=== PATIENT | male | born 1995 | race Caucasian/White ===

== ENCOUNTER 2016-09-24 13:22 | Emergency (ER) | payer BC ==
[2016-09-24 13:27] VITALS: TEMP 97.9; BMI 25.0
[2016-09-24] MEDS ORDERED: DIAZEPAM 10 MG/2 ML TUBEX IM ONE (13:34)
[2016-09-24] MEDS ORDERED: NS 1,000 ML IV ONE ×2 (13:35)
[2016-09-24] MEDS ORDERED: SODIUM CHLORIDE 0.9% 3 ML FLUSH FLUSH PRN (13:35)
--- NOTE | 2016-09-24 13:38 | EDPRACDOC ---
- General Information Chief Complaint: Abdominal Pain Stated Complaint: TINGLING ALL OVER Time Seen by Provider: 09/24/16 13:34 Information Source: Patient, Family Mode Of Arrival: Car Home Medications: Home Medications Diazepam [Valium] 5 mg PO BID PRN #10 tablet 09/24/16 No Home Medications 09/24/16 Allergies/Adverse Reactions: Allergies Allergy/AdvReac Type Severity Reaction Status Date / Time No Known Allergies Allergy Verified 09/24/16 13:27 - History of Present Illness Onset: [employer] HPI: PT PRESENTS TO ED WITH BILATERAL UPPER AND LOWER HAND AND FEET CRAMPING AND DRAWING. PT ALSO STATES HAVING GENERALIZED ABDOMINAL PAIN. PT IS TACHYPNEIC AND STATES HE IS NUMB AND TINGLING ALL OVER RENATA IN HANDS AND FEET. Pain Location: Reports: Diffuse Pain Context: Reports: Spontaneous Pain Severity: Mild Pain Quality: Reports: Aching Pain Radiation: Reports: No Radiation Modifying Factors: improves with: Nothing Associated Signs & Symptoms: Reports: Nausea Oral Intake: Normal Urinary Output: Normal ED Past Medical History - History Reviewed Yes Nurses notes reviewed and agree except as marked Travel Outside of [place] in the Last 3 Months?: No No Past Medical History: Yes Patient has no past medical history - Social Medical History ETOH: None Substance Abuse: None Lives With: Spouse Lives In: Home EDM Review of Systems - Review of Systems ROS Negative Except as Marked: Yes All systems reviewed and were negative except as marked Constitutional: Other (ANXIOUS). negative: Chills, Fever, Fatigue, Loss of Appetite, Weakness Eyes: No Symptoms Reported. negative: Redness, Blurred Vision, Double Vision, Discharge, Pain, Light Sensitive, Photophobia Ears: No Symptoms Reported. negative: Pain, Hearing Loss, Drainage, Ear Pulling Throat: No Symptoms Reported. negative: Pain, Swelling Nose: No Symptoms Reported. negative: Congestion, Bleeding, Discharge, Injection, Swelling, Deformity, Ecchymosis, Tender, Abrasion, Laceration Mouth: No Symptoms Reported. negative: Pain, Drooling Respiratory: No Symptoms Reported. negative: Cough, Brassy Cough, Barky Cough, Shortness of Breath, Wheezing, Hemoptysis Cardiovascular: Palpitations. negative: Chest Pain, Cyanosis, Edema, Orthopnea , PND, Syncope, Skin Mottling Gastrointestinal: Pain. negative: Constipation, Diarrhea, Formula Intolerance, Melena, Nausea, Vomiting Genitourinary: No Symptoms Reported. negative: Dysuria, Hematuria, Frequency, Discharge, Bleeding, Testicular Pain, Neurological: Weakness, Tingling (ALL OVER), Other (HANDS AND FEET DRAWING UP AND CRAMPING). negative: Dizziness, Gait Difficulty, Headache, Numbness, Seizure, Speech Difficulty Musculoskeletal: No Symptoms Reported. negative: Neck, Chestwall, Ribs, Back, Shoulder, Arm, Elbow, Forearm, Wrist, Hand, Pelvis, Hip, Femur, Knee, Leg, Ankle , Foot Integumentary: No Symptoms Reported. negative: Itching, Rash, Bruising, Wound Allergic/Immunologic: No Symptoms Reported. negative: Hives, Itching Hematologic: No Symptoms Reported. negative: Lymphadenopathy, Easy Bruising, Easy Bleeding Endocrine: No Symptoms Reported. negative: Weight Gain, Weight Loss Psychiatric: Anxiety. negative: Depression, Hallucinations, Insomnia, Suicidal - Physical Exam Constitutional: Alert (Awake), Other (ANXIOUS) Oriented to: Time, Person, Place Last recorded Vital Signs: Last Vital Signs Temp 97.9 F 09/24/16 13:25 Pulse 87 09/24/16 14:02 Resp 20 09/24/16 14:02 BP 124/62 09/24/16 14:02 Pulse Ox 95 09/24/16 14:02 Oxygen Pulse Oxygen Saturation 95 O2 Device Room Air Oxygen Flow Rate Fraction of Inspired Oxygen ( FIO2) - HEENT Head: Normal ( normocephalic) Eye Exam: Normal (PERRL, EOMI, Sclera white) Oropharynx: Normal (Pharynx:Moist without exudate,Gums-no swelling) Tympanic Membrane: Normal ENT EAC: Normal TMJ: Normal Nose: No Symptoms Reported (septum midline) Neck: Normal (FROM, trachea at midline) - Respiratory/Cardiovascular Respiratory: Tachypnea Cardiovascular: Tachycardia - GI Auscultation: Normal (NABS) Palpation: Normal (Soft,No rebound or guarding, non distended) Tenderness: Diffuse, Mild (NO REBOUND OR GUARDING) Bertrand's Sign: Negative - Bladder: Normal - Musculoskeletal Back: Normal (Non-Tender) Extremities: Normal (Normal tone, Pulses 2+ No cyanosis or edema, FROM) - Integumentary Skin: Normal, Warm, Dry Lymphatics: Normal (no adenopathy) - Neurologic Memory Impaired: Normal Motor Function: Normal (Normal tone, Pulses 2+ No cyanosis or edema, FROM) Cranial Nerve: Normal (CN II-X11 intact sensation, strength 5/5) Cerebellar: Normal Mood Description: Anxious Thought: Coherent Perception: Normal - Differential Diagnosis Constipation, Gastroenteritis, Other (GASTRITIS, PANIC DISORDER, ANXIETY ATTACK) - Re-evaluation Re-evaluation 1 Re-evaluation Time: 14:32 (PT STATES FELING BETTER ALMOST BACK TO NORMAL, HANDS AND FEET SPASMS AND ABDOMINAL PAIN ARE RESOLVED.) - Results 09/24/16 13:45 09/24/16 13:45 WBC 6.1 xk/uL (3.8-10.8) 09/24/16 13:45 RBC 5.26 xM/uL (4.70-6.10) 09/24/16 13:45 Hgb 15.9 g/dL (14.0-18.0) 09/24/16 13:45 Hct 45.4 % (42-52) 09/24/16 13:45 MCV 86 fL (80-94) 09/24/16 13:45 MCH 30.2 pg (27-32) 09/24/16 13:45 MCHC 35.0 g/dl (33-36) 09/24/16 13:45 RDW 12.1 % (11.5-14.5) 09/24/16 13:45 Plt Count 256 xk/uL (130-400) 09/24/16 13:45 MPV 7.9 fL (7.4-10.4) 09/24/16 13:45 Neut % (Auto) 56.0 % (45-76) 09/24/16 13:45 Lymph % (Auto) 34.0 % (17-44) 09/24/16 13:45 Bollinger % (Auto) 8.1 % (3-10) 09/24/16 13:45 Eos % (Auto) 1.6 % (0-5) 09/24/16 13:45 Baso % (Auto) 0.3 % (0-2) 09/24/16 13:45 Absolute Neuts (auto) 3.42 xk/uL (1.7-8.2) 09/24/16 13:45 Absolute Lymphs (auto) 2.07 xk/uL (0.65-4.75) 09/24/16 13:45 Sodium 141 mEq/L (137-146) 09/24/16 13:45 Potassium 3.7 mEq/L (3.5-5.1) 09/24/16 13:45 Chloride 102 mEq/L (98-107) 09/24/16 13:45 Carbon Dioxide 21 mMOL/L (22-33) L 09/24/16 13:45 Anion Gap 22 mEq/L (8-16) H 09/24/16 13:45 BUN 11 MG/DL (9-20) 09/24/16 13:45 Creatinine 0.70 MG/DL (0.66-1.25) 09/24/16 13:45 Estimated GFR (MDRD) > 60 mL/min (>=60) 09/24/16 13:45 Glucose 112 MG/DL (70-99) H 09/24/16 13:45 Calculated Osmolality 271 MOs/Kg (270-290) 09/24/16 13:45 Calcium 10.4 MG/DL (8.4-10.2) H 09/24/16 13:45 Total Bilirubin 0.9 MG/DL (0.2-1.3) 09/24/16 13:45 AST 25 IU/L (17-59) 09/24/16 13:45 ALT 41 IU/L (21-72) 09/24/16 13:45 Alkaline Phosphatase 68 IU/L (38-126) 09/24/16 13:45 Total Protein 7.7 G/DL (6.3-8.2) 09/24/16 13:45 Albumin 5.0 G/DL (3.5-5.0) 09/24/16 13:45 Lab Results 09/24/16 09/24/16 13:45 13:45 WBC 6.1 RBC 5.26 Hgb 15.9 Hct 45.4 MCV 86 MCH 30.2 MCHC 35.0 RDW 12.1 Plt Count 256 MPV 7.9 Neut % (Auto) 56.0 Lymph % (Auto) 34.0 Bollinger % (Auto) 8.1 Eos % (Auto) 1.6 Baso % (Auto) 0.3 Absolute Neuts (auto) 3.42 Absolute Lymphs (auto) 2.07 Sodium 141 Potassium 3.7 Chloride 102 Carbon Dioxide 21 L Anion Gap 22 H BUN 11 Creatinine 0.70 Estimated GFR (MDRD) > 60 Glucose 112 H Calculated Osmolality 271 Calcium 10.4 H Total Bilirubin 0.9 AST 25 ALT 41 Alkaline Phosphatase 68 Total Protein 7.7 Albumin 5.0 Decision Time to Discharge: 15:36 - Departure Disposition: Home Condition: Stable Final Diagnosis: Panic attack as reaction to stress Instructions: Panic Attack (ED) Education/Counseling Given To: Patient, Family Member Education/Counseling Given Regarding: Diagnosis, Treatment, Prognosis, Follow Up Referrals: None,No Provider [Primary Care Provider] - One Week Prescriptions: Diazepam [Valium] 5 mg PO BID PRN #10 tablet PRN Reason: Anxiety Additional Instructions: RETURN FOR WORSE OR DIFFERENT SYMPTOMS.
[2016-09-24 14:05] LABS: AUTOMATED BASOPHIL 0.3 % (0-2); AUTOMATED EOSINOPHIL 1.6 % (0-5); AUTOMATED MONOCYTE 8.1 % (3-10); MPV 7.9 fL (7.4-10.4)
[2016-09-24 14:10] LABS: BLOOD UREA NITROGEN 11 MG/DL (9-20); CALCIUM 10.4 MG/DL (8.4-10.2); CALCULATED OSMOLALITY 271 MOs/Kg (270-290); CHLORIDE 102 mEq/L (98-107); GLUCOSE 112 MG/DL (70-99); SODIUM LEVEL 141 mEq/L (137-146); TOTAL PROTEIN 7.7 G/DL (6.3-8.2)
[2016-09-24 15:58] VITALS: BP 119/68; PULSE 75
[2016-09-24] MEDS ORDERED: SODIUM CHLORIDE 0.9% 3 ML FLUSH FLUSH SCH (18:00)
== END 2016-09-24 15:57 | disposition home or self-care (01) ==
LOC: ED 13:22
DX: F43.0 Acute stress reaction (principal)
CPT/HCPCS: 36415; 80053; 85025; 93005; 96360; 96372; 99284; J3360